=== PATIENT | female | born 1980 | race Caucasian/White ===

== ENCOUNTER 2021-08-19 12:52 | Outpatient (CLI) | payer MEDICAID, SELFPAY ==
--- NOTE | 2021-08-19 13:19 | MM_ITS ---
WS: [id number] BILATERAL 3D TOMOSYNTHESIS DIGITAL SCREENING MAMMOGRAPHY WITH CAD CLINICAL INFORMATION: SCREENING HISTORY: Screening mammogram. No current complaints. COMPARISON: None. TECHNIQUE: Bilateral CC and MLO views. FINDINGS: Scattered fibroglandular densities bilaterally. Punctate and lucent centered calcifications. 9 mm asy mmetric density upper quadrant RIGHT breast best seen on the MLO view. This is likely near the 10 to 12:00 position RIGHT breast. Recommend further evaluation with spot compression views and ultrasound. LEFT breast is unremarkable. MM/[place] [id number] IMPRESSION: BI-RADS: 0-Incomplete: Need additional imaging evaluation FOLLOW UP: Need Additional Imaging Recommend RIGHT breast diagnostic mammography with spot compression views and u ltrasound.
== END 2021-08-19 12:53 | disposition home or self-care (01) ==
PROVIDERS: Visit Provider Nurse Practitioner Family
DX: Z12.31 Encounter for screening mammogram for malignant neoplasm of breast (principal); R92.8 Other abnormal and inconclusive findings on diagnostic imaging of breast
CPT/HCPCS: 77063; 77067

== ENCOUNTER 2021-09-14 07:48 | Outpatient (CLI) | payer MEDICAID, SELFPAY ==
--- NOTE | 2021-09-14 07:56 | MM_ITS ---
WS: [id number] RIGHT 3D TOMOSYNTHESIS DIGITAL MAMMOGRAPHY WITH CAD CLINICAL INFORMATION: ABNORMAL MAMMOGRAM COMPARISON: August 19, 2021 TECHNIQUE: 3 views of the right breast were obtained. FINDINGS: Scattered fibroglandular densities of the right breast. Lucent centered calcifications. Persistent asymmetric density measuring 9 mm upper outer quadrant RIGHT breast partially compresses o ut on the spot compression views. Ultrasound is pending. ULTRASOUND BREAST RIGHT TECHNIQUE: Ultrasound right breast focused area of concern. CLINICAL INFORMATION: ABNORMAL MAMMOGRAM FINDINGS: Ultrasound RIGHT breast at the 10 to 12:00 position 4 cm from the nipple. Incidental tiny cysts measu ring 3 to 4 mm at the 10:00 position. These have a benign appearance. Shadowing tiny focus of calcifi cation at the 11:00 position 4 cm from the nipple. No suspicious lesions. No lesions to target for bi opsy. Recommend return to annual screening mammography. MM/[place] [id number] IMPRESSION: BI-RADS: 2-Benign FOLLOW UP: 1 Year Follow-up Recommend return to annual screening mammography.
== END 2021-09-14 07:49 | disposition home or self-care (01) ==
PROVIDERS: PCP Nurse Practitioner Family; Visit Provider Nurse Practitioner Family
DX: R92.8 Other abnormal and inconclusive findings on diagnostic imaging of breast (principal); N60.01 Solitary cyst of right breast
CPT/HCPCS: 76642; 77061

== ENCOUNTER 2021-09-21 09:36 | Outpatient (CLI) | payer MEDICAID, SELFPAY ==
--- NOTE | 2021-09-21 09:49 | XR_ITS ---
WS: [id number] Left hip, AP and frog-leg views, 09/21/2021 Clinical Data: LEFT HIP JOINT PAIN Comparison: None. Findings: No fractures or dislocations are seen. The left hip joint shows no erosion, sclerosis, narrowing or f ragmentation of the left femoral head. The acetabular lip shows spurring.. The soft tissues are not r emarkable. The adjacent pelvis is normal. XR/XR hip LT 2-3V wo/w pel* [id number] Impression: Minimal osteoarthritis of the left hip with acetabular spurring. Tonnis classification: grade 1: sclerosis of femoral head and acetabulum or sli ght joint space narrowing or slight lipping at joint margins
== END 2021-09-21 09:37 | disposition home or self-care (01) ==
LOC: RAD 09:39
PROVIDERS: PCP Nurse Practitioner Family; Visit Provider Nurse Practitioner Family
DX: M25.552 Pain in left hip (principal); M16.12 Unilateral primary osteoarthritis, left hip
CPT/HCPCS: 73502

== ENCOUNTER 2022-02-27 17:38 | Outpatient (CLI) | payer MEDICAID, SELFPAY ==
--- NOTE | 2022-02-27 17:52 | XRR_ITS ---
PROCEDURE INFORMATION: Exam: XR Lumbosacral Spine Exam date and time: 02/27/2022 6:05 PM Age: 42 years old Clinical indication: Low back pain; Additional info: Lower back pain TECHNIQUE: Imaging protocol: Radiologic exam of the lumbosacral spine. Views: 6 or more views. Including flexion and extension views. COMPARISON: MR lumbar spine wo con* [id number] 03/23/2017 4:25 PM FINDINGS: Bones/joints: No acute fracture. No spinal malalignment. Mild multilevel endplate degenerative changes throughout the lumbar spine, with mild facet arthropathy at L5-S1. Vertebral body and disc heights are preserved. Soft tissues: Unremarkable. XR/XR lumbar spine 6V w f/e [id number] IMPRESSION: No acute findings. Mild DJD of the lumbar spine as described in the body of the report.
--- NOTE | 2022-02-27 17:52 | XRR_ITS ---
PROCEDURE INFORMATION: Exam: XR Right Hip Exam date and time: 02/27/2022 6:05 PM Age: 42 years old Clinical indication: Hip pain; Right hip; Additional info: RT. Hip pain TECHNIQUE: Imaging protocol: Radiologic exam of the Right hip. Views: 1 view hip with pelvis when performed. COMPARISON: MR lumbar spine wo con* [id number] 03/23/2017 4:25 PM FINDINGS: Bones/joints: No acute fracture. Joint space is preserved. Soft tissues: Unremarkable. XR/XR hip RT 2-3V wo/w pel* [id number] IMPRESSION: No acute findings.
== END 2022-02-27 17:39 | disposition home or self-care (01) ==
LOC: RAD 17:41
PROVIDERS: PCP Nurse Practitioner Family; Visit Provider Nurse Practitioner Family
DX: M54.50 Low back pain, unspecified (principal); M25.551 Pain in right hip
CPT/HCPCS: 72114; 73502

== ENCOUNTER 2022-05-31 08:03 | Day surgery (SDC) | payer MEDICAID, SELFPAY ==
[2022-05-29 11:16] VITALS: BMI 31.2
--- NOTE | 2022-05-29 11:24 | P.ANESASSM_ITS ---
Pre-Anesthetic Assessment Height/Weight: Height 1.78 m Weight 98.883 kg Operation Date: 05/31/22 09:35 Proposed Procedures p Laparoscopic bilateral salpingectomy 38765,Z30.2(Bilateral) - Saúl Wright MD Familial anesthetic complications: None Social Tobacco and No alcohol Exam alert, oriented x 3, clear to auscultation bilaterally and regular rate & rhythm Airway Mallampati: Class III Dentition: chipped (upper and lower) Pulmonary None reported CV/HEM Hypertension None reported Hepatic None reported GI None reported Metabolic Diabetes Mellitus [facility] [place] Lower Back Pain Neuropsych None reported Anesthetic Plan ASA status: 3 Anesthesia: General Risk of > 500 ml blood loss (7ml/kg in children): No Medications/Allergies Home Medications Medication Instructions Recorded Confirmed Last Taken Type aspirin 81 mg tablet,delayed 81 mg PO DAILY 03/14/22 05/29/22 05/23/22 History release atorvastatin 20 mg tablet 20 mg PO DAILY 03/14/22 05/29/22 05/29/22 History buspirone 15 mg tablet 15 mg PO BID PRN Anxiety 03/14/22 05/29/22 05/29/22 History cholecalciferol (vitamin D3) 50 50 mcg PO DAILY 03/14/22 05/29/22 05/29/22 History mcg (2,000 unit) capsule citalopram 40 mg tablet 40 mg PO BEDTIME 03/14/22 05/29/22 05/28/22 History dulaglutide 0.75 mg/0.5 mL 1.5 mg SUBCUT DIRECTED 03/14/22 05/29/22 05/26/22 History subcutaneous pen injector (Trulicity) lisinopril 20 mg tablet 20 mg PO DAILY 03/14/22 05/29/22 05/29/22 History Allergies Allergy/AdvReac Type Severity Reaction Status Date / Time iodine Allergy Intermediate swelling Verified 05/29/22 11:13 Penicillins Allergy Mild rash Verified 05/29/22 11:13 [facility] Anesthesia Family History Mother Diabetes Sister Diabetes Grandmother Diabetes Father Hypertension Denies family history of Cancer Social History Smoking and tobacco status: current every day smoker Second hand smoke exposure: Yes Smoking risk assessment/counseling performed?: No Alcohol intake: never Desire information about substance/drug rehabilitation?: No Counseling given: No Adopted: No Caregiver/support person: Yes Lives independently: No Household members: spouse Housing: House Marital status: Number of children: 2 Highest education level completed: High School Graduate service: No Current occupational status: unemployed Current occupational exposures/hazards: No Pets and animals: No Sexually active: Yes Current gender identity: Female Special ha needs: No Agree to transfusion: Yes Female Reproductive History Date of last menstrual period: 04/26/22 Data Anesthesia Cardiac Studies: No Data to Display
[2022-05-31] VITALS (10 sets, daily range): BP systolic 123–165; BP diastolic 67–85; PULSE 63–73; RESP 11–20; TEMP 36.3–36.6; O2SAT 91–97
[2022-05-31 08:18] LABS: Add Urine Microscopic? NO; Charge for UA Resulting for Rev
[2022-05-31 08:26] LABS: Bilirubin Urine Neg (Negative); Blood Urine Neg (Negative); Ketones Urine Negative (Negative); Leukocyte Esterase Urine Negative (Negative); Nitrate Urine Negative (Negative); Protein Urine Neg (Negative); Specific Gravity, Urine 1.025 (1.005-1.030); Urine Appearance Clear (CLEAR); Urine Color Yellow (Yellow); Urobilinogen Urine Norm (Negative); pH Urine 5 (5-7)
[2022-05-31 08:27] LABS: Glucose Urine UA 4+ (Normal)
--- NOTE | 2022-05-31 08:37 | P.ANESUD_ITS ---
Pre-Anesthetic Update Pre-Anesthetic Assessment: Date of Surgery/Procedure: 05/31/22 Preop Cheri gnosis: Desire permanent sterilization Proposed Procedure: Operation Date: 05/31/22 09:25 Proposed Procedures p Laparoscopic bilateral salpingectomy 72698,Z30.2(Bilateral) - Saúl Wright MD Any changes to Pre-Anesthetic Assessment?: No Last Intake: > 8hrs Labs Last 48hrs: Urine 05/31/22 Range/Units 08:10 Urine Color Yellow (Yellow) Urine Appearance Clear (CLEAR) Urine pH 5 (5-7) Ur Specific Gravit y 1.025 (1.005-1.030) Urine Protein Neg (Negative) Urine Glucose (UA) 4+ H (Normal) Urine Ketones Negative (Negative) Urine Nitrate Negative (Negative) Urine Bilirubin Neg (Negative) Ur Leukocyte Karol ase Negative (Negative) Exam: Pre-Anes Outpt Exam: alert, oriented x 3, clear to auscultation bilaterally and regular rate & rhythm Cardiac Studies: No Data to Display
[2022-05-31] MEDS: scopolamine 1.5 Patch 1 PATCH TRANSDERMA (08:49)
[2022-05-31] MEDS: sodium chloride 0.9% 500 ML IV (08:50)
[2022-05-31 09:07] LABS: OR HCG Qualitative Urine Negative (Negative)
[2022-05-31 09:09] LABS: Basophils # 0.1 10^3/uL (0.0-0.1); Basophils % 0.7 %; Eosinophils # 0.2 10^3/uL (0.0-0.8); Eosinophils % 2.1 %; Hematocrit 44.7 % (37.0-47.0); Hemoglobin 14.2 g/dL (11.5-15.3); Lymphocytes # 2.9 10^3/uL (0.8-4.8); Lymphocytes % 25.5 %; Mean Corpuscular HGB Conc 31.8 g/dL (30.0-36.0); Mean Corpuscular Hemoglobin 29.5 pg (28.0-34.0); Mean Corpuscular Volume 92.9 fl (81-99); Monocytes # 0.4 10^3/uL (0.2-0.9); Monocytes % 3.7 %; Neutrophils # 7.59 10^3/uL (1.8-7.7); Neutrophils % 67.7 %; Nucleated Red Blood Cells % 0 %; Platelet Count 227 10^3/cmm (130-400); Red Blood Count 4.81 10^6/uL (4.1-5.3); Red Cell Distribution Width 12.3 % (12.1-15.1); White Blood Count 11.2 10^3/uL (4.0-10.0)
[2022-05-31 09:32] LABS: Alanine Aminotransferase 16 U/L (0-33); Albumin Level 3.7 g/dL (3.5-5.2); Alkaline Phosphatase 102 U/L (35-105); Anion Gap 12.3 (5-19); Aspartate Amino Transferase 14 U/L (0-32); Blood Urea Nitrogen 10 mg/dL (6-20); Calcium 9.1 mg/dL (8.5-10.5); Carbon Dioxide 25 mmol/L (22-29); Chloride 98 mmol/L (98-107); Globulin 3.2 g/dL (1.3-4.6); Glomerular Filtration Rate 110.2 mL/min (90-130); Glucose 276 mg/dL (65-115); Osmolality Calculated 281 mOsm/kg (285-295); Potassium 4.3 mmol/L (3.5-5.1); Sodium 131 mmol/L (136-145); Total Bilirubin 0.3 mg/dL (0.15-1.2); Total Protein 6.9 g/dL (6.6-8.7)
[2022-05-31] MEDS: sodium chloride 0.9% 1,000 ML 30 ML IV (10:04)
[2022-05-31] MEDS: vancomycin 1,000 MG in sodium chloride 0.9% 250 ML 250 MG IV (10:08)
--- NOTE | 2022-05-31 11:00 | W.PM.OPSUD ---
Surgery/Procedure H&P Update DATE OF PROCEDURE: May 31, 2022 DATE H&P PERFORMED: 05/29/22 H&P UPDATE INFORMATION: I have reviewed H&P completed within last 30 days, I have examined patient prior to procedure and No changes to prior documentation PREOP DIAGNOSIS: Desire permanent sterilization PLANNED PROCEDURE: Operation Date: 05/31/22 09:25 Proposed Procedures p Laparoscopic bilateral salpingectomy 80583,Z30.2(Bilateral) - Saúl Wright MD
--- NOTE | 2022-05-31 12:06 | P.OP_ITS ---
Operative Report Date of procedure: May 31, 2022 Pre-op diagnosis: Preop Diagnosis Desire permanent sterilization Post-op diagnosis: Desire permanent cessation. Removal of Nexplanon Post-op findings: Normal uterus ovaries and tubes Procedure done: Laparoscopic bilateral salpingectomy. Nexplanon removal Specimens removed/disposition: Left and right fallopian tube Surgeon: Saúl Wright MD Estimated blood loss (mL): 5 IV fluids (mL): 300 Urine output (mL): 300 Complications: None Findings: Normal fallopian tube and ovaries Procedure: After informed consent, the patient was taken to the operating room where general anesthesia was administered. She was placed in the dorsal lithotomy position and prepped and draped in sterile fashion. Pre-Procedure Time-Out verifying the correct patient identity, correct procedure verified with consent, correct site and side, correct patient position, availability of correct implants and any special equipment or requirements was performed and acknowledge by the OR team. The patient was examined under anesthesia and found to have a normal uterus with normal adnexa. A weighted speculum was placed in the vagina, and the anterior lip of cervix was grasped with the single toothed tenaculum. A uterine manipulator was advanced into the endocervical canal and uterus. The tenaculum was removed after uterine manipulator was secured. The speculum was removed from the vagina. An intraumbilical incision was made with a scalpel. While tenting up on the abd omen, a Verres needle was admitted into the intra-abdominal cavity. A saline drop test was performed and noted to be within normal limits. Pneumoperitoneum was attained with 4 liters of carbon dioxide. The Verres needle was removed. A 5 mm Opitc view trocar and sleeve were admitted into the abdomen and laparoscopic confirmation of location was achieved. A second incision was made 3 cm above the symphysis pubis, and a 5 mm trocar sleeves were admitted into the abdomen under direct laparoscopic visualization without complication. A survey revealed normal abdominal anatomy with the exception of string adhesion to the right lower anterior abdominal wall. A 5 mm blunt probe was advanced through the second trocar sleeve, and light manipulation of ovaries and uterus to assess the posterior aspects was performed. The pelvic survey shows normal uterus, left and right adnexa. The left ovary was noted with a follicular cyst. The string adhesion was fulgurated and transected with good hemostasis with the Ligasure. The patient was placed into Trendelenburg position. The fallopian tubes were inspected bilaterally and the fimbriated ends of the fallopian tubes were visualized bilaterally. Attention was then directed to the right side. The fallopian tube and mesosalpinx were grasped and the underlying mesosalpinx was cauterized and cut using the Ligasure device. Serial cauterization and cutting was used to separate the fallopian tube from the underlying mesosalpinx until it could be amputated cutting it approximated 2 cm from the cornua. Attention was then turned to the contralateral fallopian tube, which was removed in similar fashion. Both specimens were removed through the trocar and sent to pathology. The instruments were removed. The suprapubic trocar port was removed under di rect visualization insuring good hemostasis. The carbon dioxide was allowed to escape from the abdomen. The intraumbilical trocar sleeve was withdrawn under visualization with laparoscope in the sleeve to insure hemostasis. The skin incisions were closed with 3-O Monocryl subcuticular stich and Dermabond. The instruments were removed from the vagina, and excellent hemostasis was noted. Then the removal of nexplanon from left arm was performed. The area surrounding the Nexplanon was prepared with sterile preparation and draped in the usual sterile manner. The site was anesthetized with lidocaine. A skin incision was made over the distal aspect of the device. The capsule lysed sharply and the device removed using a hemostat. Hemostasis was assured. The site was dressed with Dermabond and a pressure dressing. The patient tolerated the procedure well, and sponge, lap and needle count were correct times two. The patient was taken to the recovery room in good condition.
--- NOTE | 2022-05-31 12:59 | SUR.PHASEII ---
Urinary catheter removed per Pradip Saab RN
--- NOTE | 2022-05-31 13:24 | SUR.PHASEII ---
Ambulated to BR. Voided
--- NOTE | 2022-05-31 13:52 | ANE.PACU2 ---
Inpatient post-anesthesia follow up: Airway intact: Yes Vital signs: Temperature 97.3 F Pulse Rate 68 Respiratory Rate 16 Blood Pressure 123/79 Pulse Oximetry 95 Oxygen Delivery Me thod Room Air Oxygen Flow Rate 6 Fraction of Inspir ed Oxygen Hydration adequate: Yes Nausea and vomiting: No Pain level: 1 Mental status: Baseline
== END 2022-05-31 14:00 | disposition home or self-care (01) ==
PROVIDERS: PCP Nurse Practitioner Family; Visit Provider Obstetrics & Gynecology
PROC: (CPT 58661; principal; 2022-05-31 09:15)
DX: Z30.2 Encounter for sterilization (principal); F17.200 Nicotine dependence, unspecified, uncomplicated
CPT/HCPCS: 58661; 36415; 80053; 81003; 81025; 84703; 85025; 86850; 86900; 88302; J1100; J2250; J2405; J2704; J2710; J3010; J3370; J3490; J7030; J7040; J7050

== ENCOUNTER 2022-06-12 14:52 | Outpatient (CLI) | payer MEDICAID, SELFPAY ==
--- NOTE | 2022-06-12 15:15 | MR_ITS ---
WS: [id number] MRI LUMBAR SPINE NONCONTRAST HISTORY: pain, bilateral leg pain for 9 months. COMPARISON: 03/23/2017 TECHNIQUE: Sagittal and axial multisequence imaging is submitted. Small cervical thecal sac. There is mild narrowing of the central canal throughout the cervical spine . Mild straightening of the normal lumbar lordosis. Very minimal disc desiccation throughout the lumbar spine. Conus terminates normally at L1-2 disc level. L1-L2: Normal. L2-L3: Mild narrowing of the thecal sac with mild disc bulging. Mild ligamentum flavum and facet arth ritis. There is mild encroachment upon the lateral recesses, LEFT greater than RIGHT. Minimal foramin al narrowing. L3-L4: Diffuse moderate annular disc bulging with small osteophytes. Ligamentum flavum and facet arth ritis. Disc encroachment into the subarticular recesses. There is also disc encroachment into the for kay. Moderate central with bilateral subarticular recess and foraminal stenosis. Mild progression o f stenosis since the prior study. L4-L5: Mild annular disc bulge with a small central disc protrusion encroaching upon the thecal sac. Ligamentum flavum and facet arthritis. Moderate central with bilateral subarticular recess and forami nal stenosis. Mild progression of stenosis since the prior study. The central disc protrusion is slig htly smaller in size. L5-S1: Mild annular disc bulge with a moderate central disc protrusion contacting the thecal sac. Dis c contacts the S1 nerve roots bilaterally, greatest on the LEFT. Significant encroachment into the mchugh barticular recesses. Moderate bilateral foraminal stenosis. Similar to the prior study. Paravertebral soft tissues are normal. MR/MR lumbar spine wo con* [id number] IMPRESSION: 1. Small caliber thecal sac. 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 2. Only minimal progression of degenerative changes since the prior study. 3. Moderate central with bilateral subarticular recess and foraminal stenosis at L3-4. 4. Moderate central with bilateral subarticular recess and foraminal stenosis at L4-5. 5. Central disc protrusion at L5-S1. 6. Moderate central with severe bilateral subarticular recess stenosis and mod erate foraminal stenosis at L5-S1. Significant contact on the S1 nerve roots, L EFT greater than RIGHT. 7. No acute fractures.
== END 2022-06-12 14:53 | disposition home or self-care (01) ==
LOC: RAD 14:53
PROVIDERS: PCP Nurse Practitioner Family; Visit Provider Physician Assistant
DX: M79.604 Pain in right leg (principal); M79.605 Pain in left leg; M48.061 Spinal stenosis, lumbar region without neurogenic claudication; M51.27 Other intervertebral disc displacement, lumbosacral region
CPT/HCPCS: 72148

== ENCOUNTER → 2022-11-01 13:53 | Outpatient (BNVA) | payer MEDICAID, SELFPAY | PROVIDERS: PCP Nurse Practitioner Family; Visit Provider Anesthesiology Pain Medicine | DX: M16.9 Osteoarthritis of hip, unspecified (principal); M54.50 Low back pain, unspecified; M79.604 Pain in right leg; M79.605 Pain in left leg; M47.816 Spondylosis without myelopathy or radiculopathy, lumbar region | CPT/HCPCS: 77002 ==

== ENCOUNTER 2022-12-12 14:22 | Outpatient (CLI) | payer MEDICAID, SELFPAY ==
--- NOTE | 2022-12-12 14:29 | MM_ITS ---
WS: [id number] BILATERAL 3D TOMOSYNTHESIS DIGITAL SCREENING MAMMOGRAPHY WITH CAD CLINICAL INFORMATION: SCREENING HISTORY: Screening mammogram. No current complaints. COMPARISON: 2021 TECHNIQUE: Bilateral CC and MLO views. FINDINGS: Scattered fibroglandular densities bilaterally. No suspicious focal mass, asymmetry, calcifications, or architectural distortion. No evidence of malignancy. Punctate and lucent centered calcifications. IMPRESSION: MM/[place] [id number] BI-RADS: 2-Benign FOLLOW UP: 1 Year Follow-up Recommend return to annual screening mammography.
== END 2022-12-12 14:23 | disposition home or self-care (01) ==
LOC: RAD 14:24
PROVIDERS: PCP Nurse Practitioner Family; Visit Provider Nurse Practitioner Family
DX: Z12.31 Encounter for screening mammogram for malignant neoplasm of breast (principal)
CPT/HCPCS: 77063; 77067

== ENCOUNTER → 2023-08-14 15:53 | Outpatient (BNVA) | payer MEDICAID, SELFPAY | PROVIDERS: PCP Nurse Practitioner Family; Visit Provider Thoracic Surgery (Cardiothoracic Vascular Surgery) | DX: E11.52 Type 2 diabetes mellitus with diabetic peripheral angiopathy with gangrene (principal); E11.621 Type 2 diabetes mellitus with foot ulcer; L97.522 Non-pressure chronic ulcer of other part of left foot with fat layer exposed | CPT/HCPCS: 87070; 87176; 87205 ==

== ENCOUNTER → 2023-09-13 10:13 | Outpatient (BNVA) | payer MEDICAID, SELFPAY | PROVIDERS: PCP Nurse Practitioner Family; Visit Provider Thoracic Surgery (Cardiothoracic Vascular Surgery) | DX: E11.621 Type 2 diabetes mellitus with foot ulcer (principal); L97.509 Non-pressure chronic ulcer of other part of unspecified foot with unspecified severity | CPT/HCPCS: 87070; 87176; 87205 ==

== ENCOUNTER 2023-10-01 09:17 | Outpatient (CLI) | payer MEDICAID, SELFPAY ==
--- NOTE | 2023-10-01 09:30 | MR_ITS ---
WS: [id number] MRI LUMBAR SPINE NONCONTRAST TECHNIQUE: Sagittal T1, T2 and STIR imaging. Axial T1 and T2 imaging. CLINICAL INFORMATION: M51.16 - Intervertebral disc disorders with radiculopathy... COMPARISON: 2022 FINDINGS: Mild lumbar curve. No acute compression. Disc bulging worse at L3-L5. This is similar to previous. Co ngenital central canal stenosis with short pedicles. L1-L2: Mild facet arthropathy. Spinal canal and foramen are patent. L2-L3: Mild LEFT foraminal narrowing. Mild facet arthropathy. Slight narrowing of the LEFT subarticul ar recess. This is unchanged. L3-L4: Moderate central canal stenosis L3-4 progressed compared to previous with crowding of the caud a equina nerve rootlets. Mild disc bulging at this level has progressed. Mild bilateral foraminal jaylon rowing similar in appearance. Mild facet arthropathy. L4-L5: Mild annular bulging. Moderate central canal stenosis appears slightly progressed with impinge ment on traversing L5 nerve roots. Moderate facet arthropathy. Moderate RIGHT foraminal narrowing. L5-S1: Shallow central disc protrusion with impingement on traversing S1 nerve roots bilaterally. Mil d central canal stenosis. Moderate to advanced facet arthropathy. Moderate bilateral foraminal narrow ing. Mild central canal stenosis in the cervical spine gate agent imaging at C3-C6. Visualized pelvic bony structures: Normal. Paravertebral soft tissues: Normal. Partially visualized retroverted uterus. MR/MR lumbar spine wo con* [id number] IMPRESSION: 1. Moderate central canal stenosis L3-L4 and L4-L5 appears slightly progressed compared to previous with crowding of the cauda equina nerve rootlets and impi ngement subarticular recess. 2. Central and LEFT paracentral disc protrusion L5-S1 impinges the traversing LEFT greater than RIGHT S1 nerve roots. This appears unchanged. 3. Foraminal narrowing worse at RIGHT L3-4, RIGHT L4-5, and bilateral L5-S1 4. Moderate facet arthropathy L4-L5 and L5-S1. 5. 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
== END 2023-10-01 09:18 | disposition home or self-care (01) ==
LOC: RAD 09:17
PROVIDERS: PCP Nurse Practitioner Family; Visit Provider Anesthesiology Pain Medicine
DX: M51.16 Intervertebral disc disorders with radiculopathy, lumbar region (principal); M47.816 Spondylosis without myelopathy or radiculopathy, lumbar region; M48.061 Spinal stenosis, lumbar region without neurogenic claudication; M51.26 Other intervertebral disc displacement, lumbar region; M99.63 Osseous and subluxation stenosis of intervertebral foramina of lumbar region; M47.896 Other spondylosis, lumbar region; M47.898 Other spondylosis, sacral and sacrococcygeal region
CPT/HCPCS: 72148

== ENCOUNTER → 2023-10-02 08:14 | Outpatient (BNVA) | payer MEDICAID, SELFPAY | PROVIDERS: PCP Nurse Practitioner Family; Visit Provider Orthopaedic Surgery | DX: M54.50 Low back pain, unspecified (principal); M79.604 Pain in right leg; M79.605 Pain in left leg; M54.9 Dorsalgia, unspecified; M48.062 Spinal stenosis, lumbar region with neurogenic claudication | CPT/HCPCS: 36415; 72110; 80053; 81001; 85025 ==

== ENCOUNTER 2023-10-15 10:41 | Day surgery (SDC) | payer MEDICAID, SELFPAY ==
[2023-10-15] VITALS (13 sets, daily range): BP systolic 102–124; BP diastolic 61–76; PULSE 58–78; RESP 12–26; TEMP 36.1–36.6; O2SAT 93–100; BMI 30.1
[2023-10-15 11:28] LABS: Glucose Point of Care 196 mg/dL (70-110)
[2023-10-15] MEDS: sodium chloride 0.9% 1,000 ML 30 ML IV (11:28)
[2023-10-15 11:37] LABS: OR HCG Qualitative Urine Negative (Negative)
--- NOTE | 2023-10-15 12:22 | P.ANESASSM_ITS ---
Pre-Anesthetic Assessment Height/Weight: Height 1.78 m Weight 95.254 kg Temp Pulse Resp BP Pulse Ox O2 Del Method 97.8 F 78 17 113/74 100 Room Air 10/15/23 11:13 10/15/23 11:13 10/15/23 11:13 10/15/23 11:13 10/15/23 11:13 10/15/23 11:16 Preop Diagnosis: Lumbar stenosis with neurogenic claudication Operation Date: 10/15/23 12:50 Proposed Procedures p Lumbar Spine Decompression Lumbar Decompression(Not Applicable) - Derrick Pak, Familial anesthetic complications: None Was Beta Gary taken within 24 hours: N/A Was Clonidine taken within 24 hours: N/A Last intake: Intake Last Liquid Date 10/14/23 Last Liquid Time 23:30 Last Solid Date 10/14/23 Last Solid Time 22:00 Social Tobacco and No alcohol Exam alert, oriented x 3, clear to auscultation bilaterally and regular rate & rhythm Airway Dentition: chipped CV/HEM Hypertension Metabolic Diabetes Mellitus and Hyperlipidemia Anesthetic Plan ASA status: 3 Anesthesia: General Risk of > 500 ml blood loss (7ml/kg in children): No Medications/Allergies Home Medications Medication Instructions Recorded Confirmed Last Taken Type aspirin 81 mg tablet,delayed 81 mg PO DAILY 03/14/22 10/10/23 10/09/23 History release atorvastatin 20 mg tablet 20 mg PO DAILY 03/14/22 10/10/23 10/13/23 History buspirone 15 mg tablet 15 mg PO BID PRN Anxiety 03/14/22 10/10/23 05/30/22 History cholecalciferol (vitamin D3) 50 50 mcg PO DAILY 03/14/22 10/10/23 10/13/23 History mcg (2,000 unit) capsule citalopram 40 mg tablet 40 mg PO BEDTIME 03/14/22 10/15/23 10/13/23 History lisinopril 20 mg tablet 20 mg PO DAILY 03/14/22 10/15/23 10/13/23 History acetaminophen 325 mg capsule 325 mg PO Q4H PRN fever or pain 05/31/22 10/10/23 Unknown Rx #60 caps Allergies Allergy/AdvReac Type Severity Reaction Status Date / Time Iodinated Contrast Media Allergy Severe Unknown Verified 10/10/23 13:03 shellfish derived Allergy Severe ALGY-Anaphy Verified 10/15/23 11:07 laxis iodine Allergy Intermediate swelling Verified 10/10/23 13:03 Penicillins Allergy Mild rash Verified 10/10/23 13:03 Current Medications Generic Name Dose Route Start Last Admin Trade Name Pako PRN Reason Stop Dose Admin Sodium Chloride 1,000 mls @ 30 mls/hr 10/15/23 11:00 10/15/23 11:28 Sodium Chloride 0.9% IV 10/16/23 10:59 30 mls/hr .Q24H JUAN CARLOS Administration PFSH Anesthesia Medical History Hypertension High cholesterol Diabetes 1.5, managed as type 2 Anxiety and depression Surgical History History of appendectomy History of bilateral salpingectomy (~05/31/22) Laparoscopic bilateral salpinectomy performed by Dr. Wright at [facility] in [place], [place] Family History Mother Diabetes Sister Diabetes Grandmother Diabetes Father Hypertension Denies family history of Colon cancer Ovarian cancer Heart disease Hyperlipidemia Breast cancer Uterine cancer Thyroid disease Stroke Social History Substance/Drug Use: never Do you think of yourself as: Straight/Heterosexual Female Reproductive History Date of last menstrual period: 09/20/23 Data Anesthesia Cardiac Studies: No Data to Display
--- NOTE | 2023-10-15 12:27 | W.PM.OPSUD ---
Surgery/Procedure H&P Update DATE OF PROCEDURE: October 15, 2023 DATE H&P PERFORMED: 10/02/23 H&P UPDATE INFORMATION: I have reviewed H&P completed within last 30 days, I have examined patient prior to procedure and No changes to prior documentation PREOP DIAGNOSIS: Lumbar stenosis with neurogenic claudication PLANNED PROCEDURE: Operation Date: 10/15/23 12:50 Proposed Procedures p Lumbar Spine Decompression Lumbar Decompression(Not Applicable) - Derrick Pak DO
[2023-10-15] MEDS: clindamycin 600 MG/50 ML PREMIX 100 MG IV (12:47)
[2023-10-15] MEDS: lidocaine-epi 1% 20 mL INJ INJECTION (13:23)
--- NOTE | 2023-10-15 14:03 | XR_ITS ---
WS: [id number] Lumbar spine, C-arm fluoroscopy images, 10/15/2023 Clinical Data: OR PICS Comparison: Lumbar spine, 10/02/2023 Findings: Dr. Pak performed inspection of the lumbar spine. XR/XR lumbar spine 2-3V* [id number] Impression: Inspection of lumbar spine.
--- NOTE | 2023-10-15 14:15 | PM.OP ---
Operative Report Date of procedure: October 15, 2023 Pre-op diagnosis: Lumbar stenosis with neurogenic claudication Post-op diagnosis: same Procedure done: 1. L3-4 laminectomy with partial facetectomy 2. L4-5 laminectomy with partial facetectomy Surgeon: Derrick Pak DO Estimated blood loss (mL): 10 Procedure: 1. L3-4 laminectomy with partial facetectomy 2. L4-5 laminectomy with partial facetectomy Patient is brought to the operative suite. After undergoing anesthesia they are placed in the prone position. All areas of impingement are well padded. Patient is then prepped and draped in the normal sterile fashion. A skin incision is made over the L3-4 level. This is confirmed under c-arm guidance. A series of dilators are passed and the tubular retractor is docked on the L 3 lamina. A bovie is used to clear the soft tissue off the lamina and the L 3/4 facet joint. A high speed svetlana is then used to perform the laminectomy and take down the medial aspect of the L 3/4 facet joint. A kerrison rongeure was then used to take down the remaining lamina and smooth the edge of the laminectomy up to the point where the ligamentum flavum attaches. Attention was then brought to the medial aspect of the facet joint. The remaining medial aspect of the superior and inferior aspect of the facet joint were taken down with the kerrison from the pedicle of L3 to L 4. The facet joint had significant hypertrophy. Attention was then brought to the Ligamentum Flavum. The ligament was taken down from the lamina of L3 to L4 and out medially to the remaining facet joint. The ligament was thick. The dura was then exposed. The dura was in good repair. The L3 nerve was then traced with a curette out the L3/4 foramen and found to be adequately decompressed. The L4 nerve was traced with a curette around the L4 pedicle. The lateral recess was opened with a kerrison helping to further decompress the L4 nerve. Wound is then irrigated copiously with saline and surgiflo is used to stop any bleeding. The tubular retractor is removed and the A skin incision is made over the L4-5 level. This is confirmed under c-arm guidance. A series of dilators are passed and the tubular retractor is docked on the L4 lamina. A bovie is used to clear the soft tissue off the lamina and the L 4/5 facet joint. A high speed svetlana is then used to perform the laminectomy and take down the medial aspect of the L 4/5 facet joint. A kerrison rongeure was then used to take down the remaining lamina and smooth the edge of the laminectomy up to the point where the ligamentum flavum attaches. Attention was then brought to the medial aspect of the facet joint. The remaining medial aspect of the superior and inferior aspect of the facet joint were taken down with the kerrison from the pedicle of L4 to L 5. The facet joint had significant hypertrophy. Attention was then brought to the Ligamentum Flavum. The ligament was taken down from the lamina of L4 to L5 and out medially to the remaining facet joint. The ligament was thick. The dura was then exposed. The dura was in good repair. The L4 nerve was then traced with a curette out the L4/5 foramen and found to be adequately decompressed. The L5 nerve was traced with a curette around the L5 pedicle. The lateral recess was opened with a kerrison helping to further decompress the L5 nerve. Wound is then irrigated copiously with saline and surgiflo is used to stop any bleeding. The tubular retractor is removed and the wound is closed with vicryl and monocryl suture. Glue is then used to protect the wound. A sterile dressing is then placed. Patient was then placed in the supine position and transferred to the PACU in stable condition.
[2023-10-15] MEDS: ondansetron 2 mg/ML SDV 2 mL 4 MG IVP ×3 (14:37→15:01)
[2023-10-15] MEDS: scopolamine 1.5 Patch 1 PATCH TRANSDERMA (15:03)
[2023-10-15] MEDS: HYDROcodone-acetaminophen 5-325 mg Tablet 1 TAB PO (15:32)
--- NOTE | 2023-10-15 15:45 | ANE.PACU2 ---
Inpatient post-anesthesia follow up: Airway intact: Yes Vital signs: Temperature 97.4 F Pulse Rate 68 Respiratory Rate 18 Blood Pressure 118/72 Pulse Oximetry 100 Oxygen Delivery Me thod Room Air Oxygen Flow Rate 8 Fraction of Inspir ed Oxygen Hydration adequate: Yes Nausea and vomiting: No Pain level: 1 Mental status: Baseline
== END 2023-10-15 15:46 | disposition home or self-care (01) ==
PROVIDERS: Anesthesiology; PCP Nurse Practitioner Family; Visit Provider Orthopaedic Surgery
PROC: (CPT 63005; principal; 2023-10-15 12:30)
DX: M48.062 Spinal stenosis, lumbar region with neurogenic claudication (principal); I10 Essential (primary) hypertension; E78.5 Hyperlipidemia, unspecified; Z79.82 Long term (current) use of aspirin; E13.9 Other specified diabetes mellitus without complications
CPT/HCPCS: 63047; 63048; 36416; 72100; 76000; 81025; 82962; J1100; J1885; J2250; J2405; J2704; J2710; J3010; J3490; J7030

== ENCOUNTER 2024-02-08 10:02 | Outpatient (CLI) | payer MEDICAID, SELFPAY ==
--- NOTE | 2024-02-08 10:07 | XRR_ITS ---
PROCEDURE INFORMATION: Exam: XR Left Foot Exam date and time: 02/08/2024 10:17 AM Age: 44 years old Clinical indication: Pain; Left; Prior surgery; Surgery date: 6+ months; Surgery type: Foreign body removal x 10yrs ago; Patient HX: Ulcerative wound to lt lateral foot; Diabetes; Assess for osteomyelitis; Additional info: Rule out osteomyelitis left foot TECHNIQUE: Imaging protocol: Radiologic exam of the left foot. Views: 3 or more views. COMPARISON: No relevant prior studies available. FINDINGS: Bones/joints: Calcaneal spurring is noted. There is a small bony erosion involving the lateral aspect of the 5th proximal phalanx. Soft tissues: Soft tissue swelling involves the 5th toe. I see no soft tissue air. XR/XR foot LT min 3V* [id number] IMPRESSION: Osteomyelitis involving the 5th proximal phalanx
== END 2024-02-08 10:03 | disposition home or self-care (01) ==
LOC: RAD 10:03
PROVIDERS: PCP Nurse Practitioner Family; Visit Provider Thoracic Surgery (Cardiothoracic Vascular Surgery)
DX: M86.172 Other acute osteomyelitis, left ankle and foot (principal); M77.32 Calcaneal spur, left foot; R22.42 Localized swelling, mass and lump, left lower limb; L97.929 Non-pressure chronic ulcer of unspecified part of left lower leg with unspecified severity; E08.621 Diabetes mellitus due to underlying condition with foot ulcer; G62.9 Polyneuropathy, unspecified
CPT/HCPCS: 73630; 87070; 87077; 87176; 87186; 87205

== ENCOUNTER → 2024-02-14 16:14 | Outpatient (BNVA) | payer MEDICAID, SELFPAY | PROVIDERS: PCP Nurse Practitioner Family; Visit Provider Thoracic Surgery (Cardiothoracic Vascular Surgery) | DX: E11.621 Type 2 diabetes mellitus with foot ulcer (principal); L97.509 Non-pressure chronic ulcer of other part of unspecified foot with unspecified severity; R52 Pain, unspecified | CPT/HCPCS: 87070; 87176; 87205 ==

== ENCOUNTER → 2024-02-21 16:47 | Outpatient (BNVA) | payer MEDICAID, SELFPAY | PROVIDERS: PCP Nurse Practitioner Family; Visit Provider Thoracic Surgery (Cardiothoracic Vascular Surgery) | DX: E11.621 Type 2 diabetes mellitus with foot ulcer (principal); L97.509 Non-pressure chronic ulcer of other part of unspecified foot with unspecified severity; R52 Pain, unspecified | CPT/HCPCS: 87070; 87176; 87205 ==

== ENCOUNTER 2024-02-28 16:34 | Outpatient (CLI) | payer MEDICAID, SELFPAY ==
[2024-02-28 17:11] LABS: Basophils % 0.5 %; Eosinophils # 0.3 10^3/uL (0.0-0.8); Eosinophils % 3.1 %; Hematocrit 40.2 % (36-47); Lymphocytes # 2.7 10^3/uL (0.8-4.8); Lymphocytes % 32.1 %; Mean Corpuscular HGB Conc 32.3 g/dL (30-55); Mean Corpuscular Hemoglobin 29.8 pg (27-33); Mean Corpuscular Volume 92.2 fl (85-98); Mean Platelet Volume 10.6 fL (7.4-10.4); Monocytes # 0.3 10^3/uL (0.2-0.9); Monocytes % 3.1 %; Neutrophils # 5.19 10^3/uL (1.8-7.7); Neutrophils % 60.8 %; Nucleated Red Blood Cells % 0 %; Platelet Count 247 10^3/cmm (157-399); Red Blood Count 4.36 10^6/uL (3.85-5.65); Red Cell Distribution Width 12.6 % (12.1-15.1); White Blood Count 8.51 10^3/uL (3.29-11.43)
[2024-02-28 17:56] LABS: Blood Urea Nitrogen 17 mg/dL (6-20); C Reactive Protein 9.1 mg/L (0.0-4.9); Calcium 9.5 mg/dL (8.5-10.5); Carbon Dioxide 26 mmol/L (22-29); Chloride 100 mmol/L (98-107); Glomerular Filtration Rate 91.3 mL/min (90-130); Glucose 227 mg/dL (65-115); Osmolality Calculated 291 mOsm/kg (285-295); Prealbumin 20.2 mg/dL (20-40); Sodium 136 mmol/L (136-145)
== END 2024-02-28 16:35 | disposition home or self-care (01) ==
LOC: LAB 16:35
PROVIDERS: PCP Nurse Practitioner Family; Visit Provider Thoracic Surgery (Cardiothoracic Vascular Surgery)
DX: E11.621 Type 2 diabetes mellitus with foot ulcer (principal); M86.9 Osteomyelitis, unspecified; L97.509 Non-pressure chronic ulcer of other part of unspecified foot with unspecified severity
CPT/HCPCS: 36415; 80048; 84134; 85025; 86140; 87070; 87176; 87205

== ENCOUNTER 2024-03-14 16:10 | Outpatient (CLI) | payer MEDICAID, SELFPAY ==
[2024-03-14 16:34] LABS: Basophils # 0.1 10^3/uL (0.0-0.1); Basophils % 0.7 %; Eosinophils # 0.3 10^3/uL (0.0-0.8); Hematocrit 39.3 % (36-47); Lymphocytes # 3.5 10^3/uL (0.8-4.8); Lymphocytes % 34.4 %; Mean Corpuscular HGB Conc 32.8 g/dL (30-55); Mean Corpuscular Hemoglobin 30.1 pg (27-33); Mean Corpuscular Volume 91.6 fl (85-98); Mean Platelet Volume 10.3 fL (7.4-10.4); Monocytes # 0.4 10^3/uL (0.2-0.9); Monocytes % 4.1 %; Neutrophils # 5.86 10^3/uL (1.8-7.7); Neutrophils % 57.5 %; Nucleated Red Blood Cells % 0 %; Platelet Count 209 10^3/cmm (157-399); Red Blood Count 4.29 10^6/uL (3.85-5.65)
[2024-03-14 16:44] LABS: Anion Gap 14.1 (5-19); Blood Urea Nitrogen 11 mg/dL (6-20); C Reactive Protein 16.9 mg/L (0.0-4.9); Calcium 9.2 mg/dL (8.5-10.5); Carbon Dioxide 23 mmol/L (22-29); Chloride 103 mmol/L (98-107); Glomerular Filtration Rate 134.7 mL/min (90-130); Glucose 275 mg/dL (65-115); Osmolality Calculated 291 mOsm/kg (285-295); Potassium 4.1 mmol/L (3.5-5.1); Sodium 136 mmol/L (136-145)
[2024-03-14 16:55] LABS: Estmated Average Glucose 217; Hemoglobin A1C 9.2 % (4.0-6.0)
== END 2024-03-14 16:11 | disposition home or self-care (01) ==
PROVIDERS: PCP Nurse Practitioner Family; Visit Provider Thoracic Surgery (Cardiothoracic Vascular Surgery)
DX: M86.9 Osteomyelitis, unspecified (principal); E11.621 Type 2 diabetes mellitus with foot ulcer; L97.529 Non-pressure chronic ulcer of other part of left foot with unspecified severity
CPT/HCPCS: 36415; 80048; 83036; 85025; 86140

== ENCOUNTER → 2024-03-21 11:45 | Outpatient (BNVA) | payer MEDICAID, SELFPAY | PROVIDERS: PCP Nurse Practitioner Family; Visit Provider Podiatrist Foot & Ankle Surgery | DX: E11.8 Type 2 diabetes mellitus with unspecified complications; L60.3 Nail dystrophy; L84 Corns and callosities; G62.9 Polyneuropathy, unspecified; M86.8X7 Other osteomyelitis, ankle and foot; E11.621 Type 2 diabetes mellitus with foot ulcer; L97.522 Non-pressure chronic ulcer of other part of left foot with fat layer exposed | CPT/HCPCS: 73630 ==

== ENCOUNTER 2024-03-24 06:43 | Day surgery (SDC) | payer MEDICAID, SELFPAY ==
[2024-03-24] VITALS (8 sets, daily range): BP systolic 94–145; BP diastolic 66–85; PULSE 8–93; RESP 16–28; TEMP 36.2–36.4; O2SAT 95–98; BMI 30.1
--- NOTE | 2024-03-24 07:08 | ANES.PREANE2 ---
Pre-Anesthetic Assessment Height/Weight: Height 1.78 m Weight 95.254 kg Temp Pulse Resp BP Pulse Ox O2 Del Method 97.2 F L 92 16 145/85 98 Room Air 03/24/24 06:59 03/24/24 06:59 03/24/24 06:59 03/24/24 06:59 03/24/24 06:59 03/24/24 06:59 Preop Diagnosis: Osteomyelitis Operation Date: 03/24/24 08:15 Proposed Procedures p foot partial fifth ray resection(Left) - Kayden Leung DPM Familial anesthetic complications: None Was Beta Gary taken within 24 hours: N/A Was Clonidine taken within 24 hours: N/A Last intake: Intake Last Liquid Date 03/23/24 Last Liquid Time 20:00 Last Solid Date 03/23/24 Last Solid Time 18:00 Social Tobacco and No alcohol Exam alert, oriented x 3, clear to auscultation bilaterally and regular rate & rhythm Airway Mallampati: Class II Dentition: chipped Pulmonary Asthma and Chronic Obstructive Pulmonary Disease Metabolic Diabetes Mellitus, Hyperlipidemia and Morbid Obesity Anesthetic Plan ASA status: 3 Anesthesia: MAC Risk of > 500 ml blood loss (7ml/kg in children): No Medications/Allergies Home Medications Medication Instructions Recorded Confirmed Last Taken Type aspirin 81 mg tablet,delayed 81 mg PO DAILY 03/14/22 03/24/24 03/21/24 History release atorvastatin 20 mg tablet 20 mg PO DAILY 03/14/22 03/24/24 03/23/24 History buspirone 15 mg tablet 15 mg PO BID PRN Anxiety 03/14/22 03/24/24 05/30/22 History cholecalciferol (vitamin D3) 50 50 mcg PO DAILY 03/14/22 03/24/24 03/23/24 History mcg (2,000 unit) capsule citalopram 40 mg tablet 40 mg PO BEDTIME 03/14/22 03/24/24 03/23/24 History lisinopril 20 mg tablet 20 mg PO DAILY 03/14/22 03/24/24 03/23/24 History acetaminophen 325 mg capsule 325 mg PO Q4H PRN fever or pain 05/31/22 03/24/24 Unknown Rx #60 caps clindamycin HCl 300 mg capsule 300 mg PO TID #30 caps 03/17/24 03/24/24 03/24/24 Rx linezolid 600 mg tablet 600 mg PO BID #20 tabs 03/17/24 03/24/24 03/24/24 Rx dulaglutide 0.75 mg/0.5 mL 0.75 mg SUBCUT .WEEKLY 03/21/24 03/24/24 03/15/24 History subcutaneous pen injector (Trulicity) Allergies Allergy/AdvReac Type Severity Reaction Status Date / Time Iodinated Contrast Media Allergy Severe Unknown Verified 03/21/24 14:46 shellfish derived Allergy Severe ALGY-Anaphy Verified 03/21/24 14:46 laxis iodine Allergy Intermediate swelling Verified 03/21/24 14:46 Penicillins Allergy Mild rash Verified 03/21/24 14:46 [facility] Anesthesia Medical History Hypertension High cholesterol Diabetes 1.5, managed as type 2 Anxiety and depression Surgical History History of appendectomy History of bilateral salpingectomy (~05/31/22) Laparoscopic bilateral salpinectomy performed by Dr. Wright at [facility] in [place], [place] Family History Mother Diabetes Sister Diabetes Grandmother Diabetes Father Hypertension Denies family history of Colon cancer Ovarian cancer Heart disease Hyperlipidemia Breast cancer Uterine cancer Thyroid disease Stroke Social History Smoking and tobacco/nicotine status: unknown if used tobacco/nicotine Substance/Drug Use: never Do you think of yourself as: Straight/Heterosexual Data Anesthesia Cardiac Studies: No Data to Display
[2024-03-24] MEDS: sodium chloride 0.9% 1,000 ML 30 ML IV (07:10)
[2024-03-24] MEDS: acetaminophen 1,000 MG/100 ML PIGGYBACK 400 MG IV (07:11)
[2024-03-24] MEDS: gabapentin 300 mg Capsule PO (07:13)
[2024-03-24 07:15] LABS: OR HCG Qualitative Urine Negative (Negative)
[2024-03-24 07:18] LABS: Glucose Point of Care 232 mg/dL (70-110)
--- NOTE | 2024-03-24 09:11 | W.PM.OPSUD ---
Surgery/Procedure H&P Update DATE OF PROCEDURE: March 24, 2024 DATE H&P PERFORMED: 03/21/24 H&P UPDATE INFORMATION: I have reviewed H&P completed within last 30 days, I have examined patient prior to procedure, No changes to prior documentation and H&P is in [facility] [place] on date indicated PREOP DIAGNOSIS: Osteomyelitis PLANNED PROCEDURE: Operation Date: 03/24/24 08:15 Proposed Procedures p foot partial fifth ray resection(Left) - Kayden Leung DPM
[2024-03-24] MEDS: clindamycin 600 MG/50 ML PREMIX 100 MG IV (09:23)
[2024-03-24] MEDS: BUPivacaine 0.5% INJ 30 mL XX (09:24)
--- NOTE | 2024-03-24 10:15 | P.OP_ITS ---
Operative Report Date of procedure: March 24, 2024 Surgeon: Kayden Leung DPM Brief History: Date of procedure: 03/24/2024 Pre-op diagnosis: Left foot fifth metatarsal osteomyelitis and fifth digit proximal phalanx osteomyelitis Post-op diagnosis: Same Post-op findings: Degenerative changes of over half of fifth digit proximal phalanx and complete destruction of head of fifth metatarsal Procedure done: Left foot partial fifth ray resection CPT 29705 Implants: None Specimens removed: Fifth ray left foot Surgeon: Dr. Kayden Leung DPM Weight Training Instructor: Juliocesar Estimated blood loss: 5 cc Tourniquet time: 21 minutes Complications: None Patient is a 44-year-old female that has a history of osteomyelitis with chronic ulceration to fifth metatarsophalangeal joint region. The patient has had the aforementioned chief complaint for some time. Conservative treatment measures have been attempted and the patient has opted for surgical intervention at this time. A lengthy discussion regarding the procedure, including risks and compl ications has been had with the patient and is noted in the recent clinic note. Written and verbal consent have been obtained. All patient questions have been answered to the patient?s satisfaction. No written or verbal guarantees have been given or implied. The patient has been NPO since midnight. The history has been reviewed and the history and physical is current. The signed consent was confirmed and placed in the patient chart. Patient imaging has been reviewed and is consistent with the diagnosis. Under mild sedation, the patient was brought into the operating room and left on the gurney in the supine position. IV antibiotics were given by the anesthesia team as preoperative surgical prophylaxis. MAC sedation was then performed by the anesthesiateam. A local field block was performed using 0.5% Marcaine plain. A pneumatic tourniquet was then placed about the left ankle. The operative extremity was then prepped using Hibiclens due to iodine allergy and draped in the usual fashion. The extremity was then elevated and exsanguinated before the tourniquet was inflated to 250 mmHg. After inflation, the following procedure was then performed. Attention was directed to the left foot where a racquet style incision was made circumferentially around the fifth digit with the arm at the racquet extending onto the fifth metatarsal using a #15 blade. Dissection was carried down th rough subcutaneous the superficial fascia at the level of the fifth metatarsophalangeal joint. The fifth digit was noted to have extensive erosive changes enveloping the majority of the proximal phalanx. The fifth digit was dissected free from the fifth metatarsophalangeal joint pass from the operative field be sent a specimen. Fifth metatarsal head was noted to be discolored, soft with degenerative changes consistent with osteomyelitis. Dissection was carried more proximally to about the level of mid shaft where bone quality was noted to be healthy and viable. A sagittal bone saw was used to make an osseous cut at this level with a plantar bevel. The capital fragment was grasped with Reyna and dissected free from the area using a #15 blade. Hemostasis was achieved via electrocautery. The site was then irrigated with copious amounts sterile saline. Remaining tissue appeared healthy and viable. No further resection warranted. Attention was then directed to closure. The incision was closed using a combination of horizontal mattress, simple interrupted and trauma suture using 2-0 Prolene. The incision site was then dressed with Xeroform, 4 x 4 gauze, Kerlix, Justen before being placed in a postop shoe. The tourniquet was let down and good hyperemic response was noted to all remaining digits of the left foot. The patient tolerated the procedure and anesthesia well and without complication. The patient was transported from the operating room to the recovery room with vital signs stable and vascular status intact to all digits of the left foot. The patient was given both written and verbal instructions to remain minimally weightbearing in postoperative shoe to the operative extremity, to keep dressings/splint clean, dry and intact and to take pain medication as di rected. The patient will follow-up in the outpatient setting at their scheduled appointment. The patient was discharged with my personal number and was instructed to call if any questions or issues should arise. They were discharged home once anesthesia criteria was met.
--- NOTE | 2024-03-24 11:20 | ANE.PACU2 ---
Inpatient post-anesthesia follow up: Airway intact: Yes Vital signs: Temperature 97.6 F Pulse Rate 78 Respiratory Rate 16 Blood Pressure 110/68 Pulse Oximetry 98 Oxygen Delivery Me thod Room Air Oxygen Flow Rate Fraction of Inspir ed Oxygen Hydration adequate: Yes Nausea and vomiting: No Pain level: 1 Mental status: Baseline
== END 2024-03-24 11:21 | disposition home or self-care (01) ==
PROVIDERS: Anesthesiology; PCP Nurse Practitioner Family; Visit Provider Podiatrist Foot & Ankle Surgery
PROC: (CPT 28810; principal; 2024-03-24 08:05)
DX: M86.8X7 Other osteomyelitis, ankle and foot (principal); J44.9 Chronic obstructive pulmonary disease, unspecified; E13.9 Other specified diabetes mellitus without complications; E78.5 Hyperlipidemia, unspecified; E66.01 Morbid (severe) obesity due to excess calories; Z68.30 Body mass index [BMI] 30.0-30.9, adult; Z79.82 Long term (current) use of aspirin
CPT/HCPCS: 28122; 36416; 81025; 82962; 88305; 88311; J0131; J2250; J2704; J2765; J3490; J7030

== ENCOUNTER 2024-04-29 09:31 | Outpatient (CLI) | payer MEDICAID, SELFPAY ==
--- NOTE | 2024-04-29 09:33 | XR_ITS ---
WS: [id number] LEFT RIBS, MULTIPLE VIEWS WITH PA CHEST HISTORY: acute left rib pain COMPARISON: None available. Lungs and mediastinum: Lungs are clear and well aerated. No pneumothorax. Ribs: No rib fractures or bone destruction identified. Mild AC joint arthritis. XR/XR ribs LT mn 3V w CXR1V [id number] IMPRESSION: No rib fracture identified. Nondisplaced rib fractures are often difficult to v isualize.
== END 2024-04-29 09:32 | disposition home or self-care (01) ==
LOC: RAD 09:32
PROVIDERS: PCP Nurse Practitioner Family; Visit Provider Emergency Medicine
DX: R07.81 Pleurodynia (principal); M13.812 Other specified arthritis, left shoulder
CPT/HCPCS: 71101

== ENCOUNTER 2024-06-25 10:31 | Outpatient (CLI) | payer MEDICAID, SELFPAY ==
--- NOTE | 2024-06-25 10:37 | MM_ITS ---
WS: [id number] BILATERAL SCREENING DIGITAL TOMOSYNTHESIS MAMMOGRAM WITH CAD HISTORY: SCREENING COMPARISON: 12/12/2022, 09/14/2021 Bilateral CC and MLO views with tomosynthesis and synthetic mammography submitted. Computer aided detection analyzed. Breast composition: There are scattered areas of fibroglandular density. No suspicious masses, microcalcifications or architectural distortion. Coarse calcifications in each breast. MM/MM scr BI tomosynthesis [id number] IMPRESSION: BI-RADS: 2 - Benign. FOLLOW UP: 1 Year Follow-up
== END 2024-06-25 10:32 | disposition home or self-care (01) ==
PROVIDERS: PCP Nurse Practitioner Family; Visit Provider Nurse Practitioner Family
DX: Z12.31 Encounter for screening mammogram for malignant neoplasm of breast (principal); R92.323 Mammographic fibroglandular density, bilateral breasts; R92.1 Mammographic calcification found on diagnostic imaging of breast
CPT/HCPCS: 77063; 77067

== ENCOUNTER → 2024-07-04 10:10 | Outpatient (BNVA) | payer MEDICAID, SELFPAY | PROVIDERS: PCP Nurse Practitioner Family; Visit Provider Thoracic Surgery (Cardiothoracic Vascular Surgery) | DX: E11.621 Type 2 diabetes mellitus with foot ulcer (principal); L97.509 Non-pressure chronic ulcer of other part of unspecified foot with unspecified severity | CPT/HCPCS: 87070; 87075; 87077; 87186; 87205 ==

== ENCOUNTER → 2024-07-07 11:23 | Outpatient (BNVA) | payer MEDICAID, SELFPAY | PROVIDERS: Absent Provider Thoracic Surgery (Cardiothoracic Vascular Surgery); PCP Nurse Practitioner Family; Visit Provider Nurse Practitioner Family | DX: E11.621 Type 2 diabetes mellitus with foot ulcer (principal); L97.509 Non-pressure chronic ulcer of other part of unspecified foot with unspecified severity | CPT/HCPCS: 73630 ==

== ENCOUNTER → 2024-07-08 15:13 | Outpatient (BNVA) | payer MEDICAID, SELFPAY | PROVIDERS: PCP Nurse Practitioner Family; Visit Provider Thoracic Surgery (Cardiothoracic Vascular Surgery) | DX: E11.52 Type 2 diabetes mellitus with diabetic peripheral angiopathy with gangrene (principal); E11.621 Type 2 diabetes mellitus with foot ulcer; L97.521 Non-pressure chronic ulcer of other part of left foot limited to breakdown of skin | CPT/HCPCS: 97597 ==

== ENCOUNTER 2024-11-13 12:52 | Outpatient (RCR) | payer MEDICAID, SELFPAY | END 2024-12-07 23:59 | disposition home or self-care (01) | LOC: APT 12:52 | PROVIDERS: PCP Nurse Practitioner Family; Visit Provider Orthopaedic Surgery | DX: M54.59 Other low back pain (principal); M25.559 Pain in unspecified hip; G89.29 Other chronic pain | CPT/HCPCS: 97110; 97161 ==

== ENCOUNTER → 2024-11-25 08:24 | Outpatient (BNVA) | payer MEDICAID, SELFPAY | PROVIDERS: PCP Nurse Practitioner Family; Visit Provider Orthopaedic Surgery | DX: M16.11 Unilateral primary osteoarthritis, right hip (principal); M54.50 Low back pain, unspecified; M79.605 Pain in left leg | CPT/HCPCS: 72100; 73502 ==

== ENCOUNTER 2024-12-08 05:00 | Outpatient (RCR) | payer MEDICAID, SELFPAY | END 2025-01-06 23:59 | disposition home or self-care (01) | LOC: APT 05:00 | PROVIDERS: PCP Nurse Practitioner Family; Visit Provider Orthopaedic Surgery | DX: M54.9 Dorsalgia, unspecified (principal); M25.559 Pain in unspecified hip; G89.29 Other chronic pain | CPT/HCPCS: 97110 ==

== ENCOUNTER → 2025-01-15 13:36 | Outpatient (BNVA) | payer MEDICAID, SELFPAY | PROVIDERS: PCP Nurse Practitioner Family; Visit Provider Orthopaedic Surgery | DX: M54.2 Cervicalgia (principal); M54.9 Dorsalgia, unspecified; Z98.890 Other specified postprocedural states | CPT/HCPCS: 72050 ==

== ENCOUNTER 2025-01-15 15:00 | Outpatient (RCR) | payer MEDICAID, SELFPAY | END 2025-02-06 23:59 | disposition home or self-care (01) | LOC: APT 15:00 | PROVIDERS: PCP Nurse Practitioner Family; Visit Provider Orthopaedic Surgery | DX: M54.9 Dorsalgia, unspecified (principal); M25.559 Pain in unspecified hip; G89.29 Other chronic pain | CPT/HCPCS: 97110 ==

== ENCOUNTER 2025-01-29 12:55 | Outpatient (CLI) | payer MEDICAID, SELFPAY ==
--- NOTE | 2025-01-29 13:00 | MR_ITS ---
WS: [id number] MRI LUMBAR SPINE NONCONTRAST HISTORY: Low back pain, no recent injury. Prior surgery. COMPARISON: 10/01/2023 TECHNIQUE: Sagittal and axial multisequence imaging is submitted. Normal lumbar alignment with no compression fractures or marrow edema. Mild disc desiccation at L4-5 and L5-S1. Conus terminates normally at mid L1. L1-L2: Normal. L2-L3: Diffuse disc bulging with facet arthritis. Mild ligamentum flavum and facet arthritis. Mild narrowing of the LEFT foramen with minimal disc contact on the exiting LEFT L3 nerve root. No high-grade stenosis. No change. L3-L4: Diffuse disc bulging with osteophytic ridging and facet arthritis. Complete effacement of CSF. There is disc contacting the L3 and L4 nerve roots. High-grade central stenosis. RIGHT hemilaminectomy defect. L4-L5: Annular disc bulge with a large central disc protrusion. Ligamentum flavum and facet arthritis. Right-sided hemilaminectomy defect. There is continued severe central, subarticular recess and moderate to severe foraminal stenosis, RIGHT greater than LEFT. L5-S1: Diffuse disc bulging with osteophytic ridging. Central disc protrusion contacts the ventral thecal sac and the S1 nerve roots. Disc osteophyte complexes in the foramina. Moderate to severe central, bilateral subarticular recess and foraminal stenosis. 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 This is contributing to the central stenosis. Paravertebral soft tissues are negative. MR/MR lumbar spine wo con* [id number] IMPRESSION: 1. Severe central stenosis at L3-4 with effacement of CSF. There is disc osteo phyte contact on the L3 and L4 nerve roots. RIGHT hemilaminectomy defect. 2. Large central disc protrusion at L4-5. Continued severe central, subarticul ar recess and moderate to severe foraminal stenosis, RIGHT greater than LEFT. R IGHT hemilaminectomy defect. 3. Moderate size central disc protrusion at L5-S1 contacting the S1 nerve root s. Disc osteophyte complexes in the foramina. Moderate to severe central with b ilateral subarticular recess and foraminal stenosis. Very similar to the prior study with no significant progression.
== END 2025-01-29 12:56 | disposition home or self-care (01) ==
LOC: RAD 12:55
PROVIDERS: PCP Nurse Practitioner Family; Visit Provider Orthopaedic Surgery
DX: M48.061 Spinal stenosis, lumbar region without neurogenic claudication (principal); M51.26 Other intervertebral disc displacement, lumbar region; M51.27 Other intervertebral disc displacement, lumbosacral region; M99.63 Osseous and subluxation stenosis of intervertebral foramina of lumbar region
CPT/HCPCS: 72148